=== PATIENT | female | born 1945 | race Caucasian/White ===

== ENCOUNTER 2018-10-15 10:55 | Outpatient (CLI) | payer MEDICARE, OTHER ==
[~2018-10-15 10:55] MED LIST: Iopamidol 370 76% 100 ML VIAL ONE
--- NOTE | 2018-10-15 12:32 | CT ---
CT CHEST WITH IV CONTRAST: Date: 10-15-18 Provided Clinical History: Supraclavicular swelling on the left for two years. FINDINGS: Correlation is made with chest CT dated 03-09-16. The heart, pericardium, and great vessels demonstrate an unremarkable CT appearance with the exceptio n of vascular calcification including coronary calcium. There is no evidence for thoracic lymph node enlargement. The lungs are free of suspicious opacity. The airway appears patent and of normal caliber. The visual ized portions of the upper abdomen demonstrate a partially visualized exophytic focus of altered CT d ensity arising from the lateral margin of the left kidney which does not demonstrates Hounsfield unit s compatible with a simple cyst. This is incompletely visualized and incompletely characterized on th e basis of the study. The supraclavicular soft tissues demonstrate an unremarkable CT appearance. There is no CT evidence f or mass in the region of patient concern as marked on the skin surface by the technologist. The osseous structures demonstrate no concerning osteoblastic or osteolytic lesions. IMPRESSION: 1. No CT correlate for the reported supraclavicular palpable abnormality. 2. Incompletely characterized exophytic mass arising from the left kidney. Correlation with renal ult rasound is recommended. 3. Vascular calcification including coronary calcium. POS: [facility]
== END 2018-10-15 10:56 | disposition home or self-care (01) ==
LOC: BICCT 10:55
PROVIDERS: ATTEND Surgery
DX: R22.1 Localized swelling, mass and lump, neck (principal); I70.90 Unspecified atherosclerosis; I25.10 Atherosclerotic heart disease of native coronary artery without angina pectoris; N28.89 Other specified disorders of kidney and ureter
CPT/HCPCS: 71260; 82565; Q9967

== ENCOUNTER 2018-11-21 13:03 | Outpatient (CLI) | payer MEDICARE, OTHER ==
--- NOTE | 2018-11-21 14:52 | CT ---
FCT abdomen with and without contrast CT pelvis with and without contrast: (CT urogram) 11/21/2018 HISTORY: 73-year-old female N 28.9 renal lesion N 28.1 renal cyst N 39.0 recurrent UTI R 10.9 left-sided abdominal pain COMPARISON: 08/25/2015 FINDINGS: Again noted are the numerous small parenchymal low densities throughout the left renal upper, mid, an d lower poles. Most are less than 1 cm in size. Almost all of them are too small to definitively sunitha acterize, but are statistically most likely represent numerous small cysts. The largest is a 1.5 x 1. 5 x 1.5 cm exophytic small mass protruding laterally from the left renal midpole with densities of 41 Hounsfield units on the precontrast scan, 49 Hounsfield units on the nephrographic phase scan, and 4 8 Hounsfield units on the excretory phase scan. This is consistent with a hemorrhagic renal cyst, and has grown in size since 2014. In the contralateral right kidney, there are also numerous tiny focal hypodense lesions, smaller than 1 cm in size, and too small to characterize. There are also probably cysts. No calculus in the kidneys, ureters, or bladder. Multiple diverticula in the sigmoid colon. A few scattered tiny hypodensities in the liver, also too small to characterize, probably tiny cysts. C holecystectomy clips in gallbladder fossa. No hydronephrosis. Pancreas, adrenals, and spleen, are nor mal. No abdominal aortic aneurysm. No ascites or pneumoperitoneum. No small bowel dilation. Urinary b ladder is nearly empty and therefore difficult to evaluate. IMPRESSION: 1) 1.5 cm hemorrhagic cyst in the left renal midpole parenchyma. 2) numerous tiny focal hypodensities throughout the bilateral renal parenchyma, left greater than rig ht. They are too small to characterize, but at least the vast majority of them are cysts. 3) no urolithiasis or obstructive uropathy.
[2018-11-21] MEDS ORDERED: ISOVUE-370 76%-LOCM 1 ML ONE (15:28)
== END 2018-11-21 13:04 | disposition home or self-care (01) ==
LOC: BICCT 13:03
PROVIDERS: ATTEND Urology
DX: N28.1 Cyst of kidney, acquired (principal); N28.9 Disorder of kidney and ureter, unspecified; N39.0 Urinary tract infection, site not specified
CPT/HCPCS: 74178; Q9966

== ENCOUNTER 2020-12-21 05:07 | Inpatient (IN) | payer MEDICARE, OTHER ==
[2020-12-21] MEDS ORDERED: Fentanyl 100 MCG/2 ML VIAL ONE ×4 (05:27→16:45)
[2020-12-21 05:36] LABS: #Eosinphils 0.4 thou/uL (0.0-0.7); #Lymphocytes 2.3 thou/uL (1.20-3.40); #Monocytes 0.7 thou/uL (0.11-0.59); #Neutrophils 3.8 thou/uL (1.40-6.50); %Basophils 0.6 % (0.0-1.0); %Eosinophils 5.2 % (0.0-10.0); %Monocytes 10.1 % (0.0-10.0); %Neutrophils 52.1 % (42.0-75.0); Hemoglobin 12.2 g/dL (12.0-16.0); Mean Corpuscular HGB CONC 31.2 g/dL (32.0-36.0); Mean Corpuscular Hemoglobin 29.5 pg (27.0-31.0); Mean Corpuscular Volume 94.6 fL (78.0-98.0); Mean Platelet Volume 9.4 fL (7.4-10.4); Platelet Count 196 thou/uL (130-400); RBC Distribution Width 11.8 % (11.5-14.5); Red Blood Cell (RBC) Count 4.15 mill/uL (4.20-5.40); White Blood Cell (WBC) Count 7.3 thou/uL (4.8-10.8)
[2020-12-21 05:58] LABS: ALT (SGPT) 14 U/L (8-55); AST (SGOT) 19 U/L (5-34); Albumin 3.7 g/dL (3.4-4.8); Alkaline Phosphatase 57 U/L (40-110); Anion Gap 11 mmol/L (10-20); BUN (Urea Nitrogen) 27 mg/dL (9.8-20.1); Bilirubin, Total 0.3 mg/dL (0.2-1.2); Calc. Creatinine Clearance 0 mL/min (70-130); Calcium 9.9 mg/dL (7.8-10.44); Carbon Dioxide 27 mmol/L (23-31); Chloride 106 mmol/L (98-107); Globulin 2.7 g/dL (2.4-3.5); Glucose 133 mg/dL (83-110); Potassium 3.8 mmol/L (3.5-5.1); Protein, Total 6.4 g/dL (5.8-8.1); Sodium 140 mmol/L (136-145)
[2020-12-21 06:07] LABS: INR-International Normal Ratio 0.9; PTT 26.3 sec (22.9-36.1); Prothrombin Time 12.7 sec (12.0-14.7)
[2020-12-21] MEDS ORDERED: Ondansetron PF 4 MG/2 ML Vial IVP PRN (06:45)
[2020-12-21] MEDS ORDERED: Dextrose 50% Abboject 50 ML SYRINGE SLOW IVP PRN (06:45)
[2020-12-21] MEDS ORDERED: Insulin Regular 300 UNITS/3 ML VIAL SC PRN ×2 (06:45)
[2020-12-21] MEDS ORDERED: Dextrose 5% in Water 1,000 ML IV PRN (06:45)
[2020-12-21] MEDS ORDERED: CEFAZOLIN 2 GM in Premix Bag 1 BAG IVPB SCH (07:30)
[2020-12-21] MEDS ORDERED: traMADol HCl 50 MG TAB ONE (07:41)
[2020-12-21] MEDS: traMADol HCl 50 MG TAB PO PRN (07:43)
[2020-12-21] MEDS ORDERED: Fentanyl 100 MCG/2 ML VIAL SLOW IVP PRN (08:15)
[2020-12-21] MEDS ORDERED: Famotidine/PF 20 mg/2ml Vial ONE ×2 (08:22→14:43)
[2020-12-21] MEDS ORDERED: Metoprolol Tartrate 50 MG TAB ONE (08:22)
[2020-12-21] MEDS ORDERED: Furosemide 40 MG TAB ONE (08:22)
[2020-12-21] MEDS ORDERED: Acetaminophen 325 MG TAB ONE ×2 (08:22→08:36)
[2020-12-21] MEDS: Acetaminophen 325 MG TAB PO SCH ×3 (08:27→19:48)
[2020-12-21] MEDS: Metoprolol Tartrate 100 MG TAB PO SCH (08:29)
[2020-12-21] MEDS: Famotidine/PF 20 mg/2ml Vial SLOW IVP SCH ×2 (08:30→19:49)
[2020-12-21] MEDS: Furosemide 20 MG TAB PO SCH (08:31)
[2020-12-21 10:25] LABS: SARS-CoV-2 PCR by NAA Not Detected (NotDetected)
[2020-12-21] MEDS: Rosuvastatin 20 MG TAB PO SCH (11:00)
[2020-12-21] MEDS ORDERED: Rocuronium Bromide 10 MG/ML (10ML VIAL) ONE (15:10)
[2020-12-21] MEDS ORDERED: Dexamethasone 20 MG/5 ML VIAL ONE (15:10)
[2020-12-21] MEDS ORDERED: Lidocaine 1% PF 5 ML VIAL ONE (15:10)
[2020-12-21] MEDS ORDERED: Glycopyrrolate 0.2 MG/ML 5 ML SYRINGE ONE (15:10)
[2020-12-21] MEDS ORDERED: Ondansetron PF 4 MG/2 ML Vial ONE (15:10)
[2020-12-21] MEDS ORDERED: PROPOFOL 200 MG/20 ML VIAL ONE (15:10)
[2020-12-21] MEDS ORDERED: Ondansetron HCl/PF 4 MG/2 ML Vial IVP PRN (16:33)
[2020-12-21] MEDS ORDERED: Promethazine HCl 25 MG/ML VIAL SLOW IVP PRN (16:33)
[2020-12-21] MEDS ORDERED: Promethazine HCl 25 MG/ML VIAL IM PRN (16:33)
[2020-12-21] MEDS: traMADol HCl 50 MG TAB PO SCH (19:47)
[2020-12-21] MEDS: CEFAZOLIN 2 GM in Premix Bag 1 BAG IVPB SCH ×2 (19:48→23:29)
[2020-12-21] MEDS: Cyclobenzaprine 10 MG TAB PO PRN (20:14)
[2020-12-21] MEDS: Venlafaxine HCl XR 150 MG CAP PO SCH (20:15)
[2020-12-21 22:20] VITALS: BMI 39.1
[2020-12-22] MEDS: Levothyroxine Sodium 100 MCG TAB PO SCH (05:33)
[2020-12-22] MEDS: traMADol HCl 50 MG TAB PO SCH ×5 (05:33→17:54)
[2020-12-22] MEDS: Acetaminophen 325 MG TAB PO SCH ×4 (05:34→17:54)
[2020-12-22 06:24] LABS: #Lymphocytes 1.3 thou/uL (1.20-3.40); #Monocytes 0.9 thou/uL (0.11-0.59); #Neutrophils 8.8 thou/uL (1.40-6.50); %Basophils 0.1 % (0.0-1.0); %Eosinophils 0.1 % (0.0-10.0); %Lymphocytes 11.5 % (21.0-51.0); %Monocytes 7.8 % (0.0-10.0); %Neutrophils 80.5 % (42.0-75.0); Hemoglobin 11.4 g/dL (12.0-16.0); Mean Corpuscular HGB CONC 31.5 g/dL (32.0-36.0); Mean Corpuscular Hemoglobin 29.9 pg (27.0-31.0); Mean Corpuscular Volume 94.9 fL (78.0-98.0); Mean Platelet Volume 9.9 fL (7.4-10.4); Platelet Count 210 thou/uL (130-400); RBC Distribution Width 11.6 % (11.5-14.5); Red Blood Cell (RBC) Count 3.82 mill/uL (4.20-5.40); White Blood Cell (WBC) Count 10.9 thou/uL (4.8-10.8)
[2020-12-22 06:25] LABS: Phosphorus 3.1 mg/dL (2.3-4.7)
[2020-12-22 06:28] LABS: Anion Gap 13 mmol/L (10-20); BUN (Urea Nitrogen) 27 mg/dL (9.8-20.1); Calc. Creatinine Clearance 52 mL/min (70-130); Calcium 10.5 mg/dL (7.8-10.44); Carbon Dioxide 25 mmol/L (23-31); Chloride 103 mmol/L (98-107); Glucose 156 mg/dL (83-110); Magnesium 2.2 mg/dL (1.6-2.6); Potassium 4.2 mmol/L (3.5-5.1); Sodium 137 mmol/L (136-145)
[2020-12-22] MEDS ORDERED: Aspirin 81 mg Enteric Coated Tablet PO SCH (09:00)
[2020-12-22] MEDS: Amlodipine 5 MG TAB PO SCH (10:36)
[2020-12-22] MEDS: Metoprolol Tartrate 100 MG TAB PO SCH (10:37)
[2020-12-22] MEDS: Heparin 5,000 UNITS/ML VIAL SC SCH ×2 (10:42→20:02)
[2020-12-22] MEDS: Ezetimibe 10 MG TAB PO SCH (10:43)
[2020-12-22] MEDS: Rosuvastatin 20 MG TAB PO SCH (10:43)
[2020-12-22] MEDS: traMADol HCl 50 MG TAB PO PRN (10:44)
[2020-12-22] MEDS: Famotidine 20 MG TAB PO SCH ×2 (10:44→20:02)
[2020-12-22] MEDS: Furosemide 20 MG TAB PO SCH (11:01)
[2020-12-22] MEDS: Glimepiride 4 MG TAB PO SCH (17:54)
[2020-12-22] MEDS: Venlafaxine HCl XR 150 MG CAP PO SCH (20:02)
[2020-12-23] MEDS: Acetaminophen 325 MG TAB PO SCH ×4 (01:14→17:55)
[2020-12-23] MEDS: traMADol HCl 50 MG TAB PO SCH ×4 (01:14→17:56)
[2020-12-23] MEDS: traMADol HCl 50 MG TAB PO PRN (02:28)
[2020-12-23] MEDS: Cyclobenzaprine 10 MG TAB PO PRN (02:28)
[2020-12-23] MEDS: Levothyroxine Sodium 100 MCG TAB PO SCH (05:49)
[2020-12-23 05:51] LABS: #Basophils 0.1 thou/uL (0.0-0.2); #Eosinphils 0.2 thou/uL (0.0-0.7); #Lymphocytes 2.3 thou/uL (1.20-3.40); #Monocytes 1.2 thou/uL (0.11-0.59); #Neutrophils 9.2 thou/uL (1.40-6.50); %Basophils 0.7 % (0.0-1.0); %Eosinophils 1.3 % (0.0-10.0); %Lymphocytes 17.9 % (21.0-51.0); %Monocytes 9.4 % (0.0-10.0); %Neutrophils 70.7 % (42.0-75.0); Hemoglobin 10.6 g/dL (12.0-16.0); Mean Corpuscular HGB CONC 31.4 g/dL (32.0-36.0); Mean Corpuscular Hemoglobin 29.8 pg (27.0-31.0); Mean Platelet Volume 9.6 fL (7.4-10.4); Platelet Count 160 thou/uL (130-400); RBC Distribution Width 11.6 % (11.5-14.5); Red Blood Cell (RBC) Count 3.54 mill/uL (4.20-5.40)
[2020-12-23 06:16] LABS: Anion Gap 11 mmol/L (10-20); BUN (Urea Nitrogen) 41 mg/dL (9.8-20.1); Calc. Creatinine Clearance 46 mL/min (70-130); Calcium 10.5 mg/dL (7.8-10.44); Carbon Dioxide 27 mmol/L (23-31); Chloride 103 mmol/L (98-107); Glucose 81 mg/dL (83-110); Magnesium 2.3 mg/dL (1.6-2.6); Phosphorus 3.3 mg/dL (2.3-4.7); Potassium 4.1 mmol/L (3.5-5.1); Sodium 137 mmol/L (136-145)
[2020-12-23] MEDS: Rosuvastatin 20 MG TAB PO SCH (09:20)
[2020-12-23] MEDS: Famotidine 20 MG TAB PO SCH (09:20)
[2020-12-23] MEDS: Ezetimibe 10 MG TAB PO SCH (09:20)
[2020-12-23] MEDS: Metoprolol Tartrate 100 MG TAB PO SCH (09:21)
[2020-12-23] MEDS: Glimepiride 4 MG TAB PO SCH ×2 (09:21→18:19)
[2020-12-23] MEDS: Amlodipine 5 MG TAB PO SCH (09:21)
[2020-12-23] MEDS: Heparin 5,000 UNITS/ML VIAL SC SCH (09:22)
[2020-12-23] MEDS: Furosemide 20 MG TAB PO SCH (09:22)
[2020-12-23 15:32] VITALS: BP 110/74; TEMP 98.1
== END 2020-12-23 18:05 | DRG 482 ==
LOC: ERS 05:07 → ERHOLD 06:25 → SURG A 19:11
PROVIDERS: ADMIT Surgery; ATTEND Surgery
PROC: 0QS706Z Reposition Left Upper Femur with Intramedullary Internal Fixation Device, Open Approach (ICD-10-PCS; principal; 2020-12-21)
DX: S72.142A Displaced intertrochanteric fracture of left femur, initial encounter for closed fracture (principal); Z20.822 Contact with and (suspected) exposure to COVID-19; Z23 Encounter for immunization; I25.10 Atherosclerotic heart disease of native coronary artery without angina pectoris; E78.5 Hyperlipidemia, unspecified; E03.9 Hypothyroidism, unspecified; N18.30 Chronic kidney disease, stage 3 unspecified; I12.9 Hypertensive chronic kidney disease with stage 1 through stage 4 chronic kidney disease, or unspecified chronic kidney disease; E11.22 Type 2 diabetes mellitus with diabetic chronic kidney disease; W18.39XA Other fall on same level, initial encounter; Y92.002 Bathroom of unspecified non-institutional (private) residence as the place of occurrence of the external cause; I25.2 Old myocardial infarction; Z90.49 Acquired absence of other specified parts of digestive tract; Z90.710 Acquired absence of both cervix and uterus; Z90.89 Acquired absence of other organs; Z79.899 Other long term (current) drug therapy; Z79.890 Hormone replacement therapy; Z79.84 Long term (current) use of oral hypoglycemic drugs; Z88.8 Allergy status to other drugs, medicaments and biological substances
CPT/HCPCS: 36415; 36416; 51702; 71045; 72170; 76000; 80048; 80053; 83735; 84100; 84484; 85025; 85610; 85730; 87635; 90471; 90732; 93005; 96374; C1713; G0009; G0390; J0690; J1100; J1644; J2405; J2704; J3010; S0028; U0003; U0005

== ENCOUNTER 2021-11-29 12:46 | Outpatient (CLI) | payer MEDICARE, OTHER | END 2021-11-29 12:47 | disposition home or self-care (01) | LOC: BICMAMMO 12:46 | PROVIDERS: ATTEND Internal Medicine | DX: Z12.31 Encounter for screening mammogram for malignant neoplasm of breast (principal); Z13.820 Encounter for screening for osteoporosis; M85.89 Other specified disorders of bone density and structure, multiple sites; Z91.89 Other specified personal risk factors, not elsewhere classified; Z78.0 Asymptomatic menopausal state | CPT/HCPCS: 77063; 77067; 77080 ==

== ENCOUNTER 2022-04-27 12:19 | Outpatient (CLI) | payer MEDICARE, OTHER | END 2022-04-27 12:20 | disposition home or self-care (01) | LOC: BICULT 12:19 | PROVIDERS: ATTEND Internal Medicine | DX: N18.4 Chronic kidney disease, stage 4 (severe) (principal); N28.1 Cyst of kidney, acquired | CPT/HCPCS: 76770 ==

== ENCOUNTER 2024-02-22 15:39 | Inpatient (IN) | payer MEDICARE, OTHER ==
[2024-02-22] MEDS ORDERED: Ondansetron PF 4 MG/2 ML Vial ONE (16:16)
[2024-02-22 16:42] LABS: #Basophils 0.03 10x3/uL (0.0-0.2); %Basophils 0.2 % (0.0-1.0); %Eosinophils 0.6 % (0.0-10.0); %Lymphocytes 4.9 % (21.0-51.0); %Monocytes 1.5 % (0.0-10.0); %Neutrophils 92.5 % (42.0-75.0); Hematocrit 42.3 % (36.0-47.0); Hemoglobin 13.8 g/dL (12.0-16.0); Mean Corpuscular HGB CONC 32.6 g/dL (32.0-36.0); Mean Corpuscular Hemoglobin 29.7 pg (27.0-31.0); Mean Platelet Volume 11.5 fL (7.4-10.4); Platelet Count 250 10x3/uL (130-400); RBC Distribution Width 12.8 % (11.5-14.5); Red Blood Cell (RBC) Count 4.65 mill/uL (4.20-5.40)
[2024-02-22 16:54] LABS: ALT (SGPT) 21 U/L (8-55); AST (SGOT) 35 U/L (5-34); Albumin 3.5 g/dL (3.4-4.8); Alkaline Phosphatase 71 U/L (40-110); Anion Gap 16 mmol/L (10-20); BUN (Urea Nitrogen) 19 mg/dL (9.8-20.1); Bilirubin, Total 0.7 mg/dL (0.2-1.2); Calc. Creatinine Clearance 0 mL/min (70-130); Calcium 8.8 mg/dL (7.8-10.44); Carbon Dioxide 18 mmol/L (23-31); Chloride 106 mmol/L (98-107); Estimated GFR 33; Globulin 3.6 g/dL (2.4-3.5); Glucose 176 mg/dL (83-110); Potassium 3.6 mmol/L (3.5-5.1); Protein, Total 7.1 g/dL (5.8-8.1); Sodium 136 mmol/L (136-145)
[2024-02-22] MEDS ORDERED: Piperacillin/Tazobactam 3.375 GM VIAL ONE (19:27)
[2024-02-22] MEDS ORDERED: Sodium Chloride 0.9% 100 ML ONE (19:27)
[2024-02-22 19:55] LABS: Magnesium 1.5 mg/dL (1.6-2.6)
[2024-02-22] MEDS ORDERED: Sodium Chloride 0.9% 1,000 ML IV SCH (20:00)
[2024-02-22] MEDS ORDERED: Ondansetron ODT 4 MG TAB SL PRN (20:00)
[2024-02-22] MEDS ORDERED: Ondansetron PF 4 MG/2 ML Vial IVP PRN (20:00)
[2024-02-22] MEDS ORDERED: Dextrose 50% Abboject 50 ML SYRINGE SLOW IVP PRN (21:11)
[2024-02-22] MEDS ORDERED: Dextrose 5% in Water 1,000 ML IV PRN (21:11)
[2024-02-22] MEDS ORDERED: Glucagon 1 MG/ML KIT IM PRN (21:11)
[2024-02-22 21:20] LABS: Influenza A by NAA Not Detected (NotDetected); Influenza B by NAA Not Detected (NotDetected); SARS-CoV-2 NAA Rapid Test Not Detected (NotDetected)
[2024-02-22 21:26] LABS: Hemoglobin A1c 6.1 % (4.0-6.0)
[2024-02-22 22:58] LABS: Lactic Acid 1.3 mmol/L (0.5-2.2)
[2024-02-22] MEDS: Magnesium 2 GM/50 ML(in water) 2 GM in Premix 1 BAG IVPB SCH (23:39)
[2024-02-22] MEDS: Lactated Ringer's 1,000 ML IV SCH (23:39)
[2024-02-22 23:41] VITALS: BMI 32.5
[2024-02-23 00:47] LABS: Lactic Acid 3.2 mmol/L (0.5-2.2)
[2024-02-23] MEDS: Levothyroxine Sodium 100 MCG TAB PO SCH (05:26)
[2024-02-23] MEDS: Ciprofloxacin 500 MG TAB PO SCH (05:26)
[2024-02-23] MEDS: Acetaminophen 325 MG TAB PO PRN ×2 (05:27→22:39)
[2024-02-23] MEDS: Amlodipine 5 MG TAB PO SCH (08:58)
[2024-02-23] MEDS: Glimepiride 4 MG TAB PO SCH (08:58)
[2024-02-23] MEDS: Ezetimibe 10 MG TAB PO SCH (08:58)
[2024-02-23] MEDS: Metoprolol Tartrate 100 MG TAB PO SCH (08:58)
[2024-02-23 10:38] LABS: #Basophils 0.05 10x3/uL (0.0-0.2); %Basophils 0.4 % (0.0-1.0); %Lymphocytes 10.3 % (21.0-51.0); %Monocytes 4.6 % (0.0-10.0); %Neutrophils 83.3 % (42.0-75.0); Hematocrit 34.7 % (36.0-47.0); Hemoglobin 10.8 g/dL (12.0-16.0); Mean Corpuscular HGB CONC 31.1 g/dL (32.0-36.0); Mean Corpuscular Hemoglobin 29.5 pg (27.0-31.0); Mean Corpuscular Volume 94.8 fL (78.0-98.0); Mean Platelet Volume 11.4 fL (7.4-10.4); Platelet Count 194 10x3/uL (130-400); Red Blood Cell (RBC) Count 3.66 mill/uL (4.20-5.40)
[2024-02-23 10:45] LABS: Anion Gap 14 mmol/L (10-20); BUN (Urea Nitrogen) 22 mg/dL (9.8-20.1); Calc. Creatinine Clearance 39 mL/min (70-130); Calcium 8.2 mg/dL (7.8-10.44); Carbon Dioxide 21 mmol/L (23-31); Chloride 109 mmol/L (98-107); Estimated GFR 29; Glucose 170 mg/dL (83-110); Potassium 3.5 mmol/L (3.5-5.1); Sodium 140 mmol/L (136-145)
[2024-02-23] MEDS: traMADol HCl 50 MG TAB PO PRN (20:18)
[2024-02-23] MEDS: Venlafaxine HCl XR 150 MG CAP PO SCH (20:20)
[2024-02-24 05:13] LABS: #Basophils 0.05 10x3/uL (0.0-0.2); %Basophils 0.5 % (0.0-1.0); %Eosinophils 1.4 % (0.0-10.0); %Lymphocytes 20.6 % (21.0-51.0); %Neutrophils 66.2 % (42.0-75.0); Hematocrit 36.8 % (36.0-47.0); Hemoglobin 11.4 g/dL (12.0-16.0); Mean Corpuscular Hemoglobin 28.9 pg (27.0-31.0); Mean Corpuscular Volume 93.2 fL (78.0-98.0); Mean Platelet Volume 11.3 fL (7.4-10.4); Platelet Count 192 10x3/uL (130-400); RBC Distribution Width 12.8 % (11.5-14.5); Red Blood Cell (RBC) Count 3.95 mill/uL (4.20-5.40)
[2024-02-24 05:48] LABS: Anion Gap 10 mmol/L (10-20); BUN (Urea Nitrogen) 19 mg/dL (9.8-20.1); Calc. Creatinine Clearance 43 mL/min (70-130); Calcium 8.5 mg/dL (7.8-10.44); Carbon Dioxide 24 mmol/L (23-31); Chloride 109 mmol/L (98-107); Estimated GFR 32; Glucose 52 mg/dL (83-110); Potassium 3.5 mmol/L (3.5-5.1); Sodium 139 mmol/L (136-145)
[2024-02-24] MEDS: Amlodipine 5 MG TAB PO SCH (10:38)
[2024-02-24] MEDS: Cinacalcet HCl 30 MG TAB PO SCH (10:39)
[2024-02-24] MEDS: Sodium Chloride 0.9% 1,000 ML IV SCH (13:55)
[2024-02-24 15:44] LABS: Campy jejuni + coli by PCR Negative (Negative); STEC Shiga Toxin 1+2 Negative (Negative); Salmonella spp. by PCR Negative (Negative); Shigella spp + EIEC by PCR Negative (Negative)
[2024-02-25 05:36] LABS: #Basophils 0.04 10x3/uL (0.0-0.2); %Basophils 0.5 % (0.0-1.0); %Eosinophils 3.6 % (0.0-10.0); %Monocytes 9.1 % (0.0-10.0); %Neutrophils 63.5 % (42.0-75.0); Hematocrit 38.8 % (36.0-47.0); Mean Corpuscular HGB CONC 30.9 g/dL (32.0-36.0); Mean Corpuscular Hemoglobin 28.5 pg (27.0-31.0); Mean Corpuscular Volume 92.2 fL (78.0-98.0); Mean Platelet Volume 11.2 fL (7.4-10.4); Platelet Count 189 10x3/uL (130-400); RBC Distribution Width 12.8 % (11.5-14.5); Red Blood Cell (RBC) Count 4.21 mill/uL (4.20-5.40)
[2024-02-25 05:55] LABS: Anion Gap 13 mmol/L (10-20); BUN (Urea Nitrogen) 15 mg/dL (9.8-20.1); Calc. Creatinine Clearance 47 mL/min (70-130); Calcium 8.5 mg/dL (7.8-10.44); Carbon Dioxide 22 mmol/L (23-31); Chloride 107 mmol/L (98-107); Estimated GFR 36; Glucose 147 mg/dL (83-110); Potassium 3.5 mmol/L (3.5-5.1); Sodium 138 mmol/L (136-145)
[2024-02-25] MEDS: Amlodipine 10 MG TAB PO SCH (07:58)
[2024-02-25 12:47] VITALS: BP 141/92; TEMP 98
== END 2024-02-25 13:01 | disposition home or self-care (01) | DRG 872 ==
LOC: ERS 15:39 → T4-B 19:47 → OBSVTOIN 02-24 08:57
PROVIDERS: ADMIT Student in an Organized Health Care Education/Training Program; ATTEND Internal Medicine
DX: A41.9 Sepsis, unspecified organism (principal); E87.20 Acidosis, unspecified; N17.9 Acute kidney failure, unspecified; K52.9 Noninfective gastroenteritis and colitis, unspecified; E11.649 Type 2 diabetes mellitus with hypoglycemia without coma; E78.5 Hyperlipidemia, unspecified; E11.22 Type 2 diabetes mellitus with diabetic chronic kidney disease; I12.9 Hypertensive chronic kidney disease with stage 1 through stage 4 chronic kidney disease, or unspecified chronic kidney disease; Z79.899 Other long term (current) drug therapy; N18.30 Chronic kidney disease, stage 3 unspecified; Z88.8 Allergy status to other drugs, medicaments and biological substances; I25.2 Old myocardial infarction; Z90.89 Acquired absence of other organs; F32.A Depression, unspecified; Z90.710 Acquired absence of both cervix and uterus; Z90.49 Acquired absence of other specified parts of digestive tract
CPT/HCPCS: 36415; 36416; 71045; 80048; 80053; 83036; 83605; 83735; 84145; 85025; 87040; 87077; 87149; 87186; 87324; 87449; 87505; 93005; G0378; J2405; J2543; J3490; J7050; J7120

== ENCOUNTER 2024-10-22 15:33 | Outpatient (CLI) | payer MEDICARE, OTHER | END 2024-10-22 15:34 | disposition home or self-care (01) | LOC: BICRAD 15:33 | PROVIDERS: ATTEND Internal Medicine | DX: R06.00 Dyspnea, unspecified (principal) | CPT/HCPCS: 71046 ==

== ENCOUNTER 2025-04-30 20:45 | Inpatient (IN) | payer MEDICARE, OTHER ==
[2025-04-30 22:26] LABS: #Basophils 0.06 10x3/uL (0.0-0.2); #Eosinophils Less than 0.03 10x3/uL (0.0-0.7); #Monocytes 1.35 10x3/uL (0.11-0.59); #Neutrophils 10.30 10x3/uL (1.40-6.50); %Basophils 0.4 % (0.0-1.0); %Eosinophils 0.1 % (0.0-10.0); %Lymphocytes 18.2 % (21.0-51.0); %Monocytes 9.3 % (0.0-10.0); %Neutrophils 71.3 % (42.0-75.0); Hematocrit 37.6 % (36.0-47.0); Hemoglobin 11.7 g/dL (12.0-16.0); Mean Corpuscular Hemoglobin 28.2 pg (27.0-31.0); Mean Corpuscular Volume 90.6 fL (78.0-98.0); Platelet Count 285 10x3/uL (130-400); Red Blood Cell (RBC) Count 4.15 mill/uL (4.20-5.40); White Blood Cell (WBC) Count 14.47 10x3/uL (4.8-10.8)
[2025-04-30 22:51] LABS: ALT (SGPT) 14 U/L (Less than 34); AST (SGOT) 19 U/L (11-34); Albumin 2.9 g/dL (3.1-4.5); Alkaline Phosphatase 68 U/L (40-110); Anion Gap 14 mmol/L (10-20); BUN (Urea Nitrogen) 25 mg/dL (9.8-20.1); Bilirubin, Total 0.6 mg/dL (0.3-1.2); Calc. Creatinine Clearance 0 mL/min (70-130); Calcium 8.4 mg/dL (7.8-10.44); Carbon Dioxide 18 mmol/L (23-31); Chloride 105 mmol/L (98-107); Globulin 3.4 g/dL (2.4-3.5); Glucose 172 mg/dL (83-110); Potassium 3.3 mmol/L (3.5-5.1); Sodium 134 mmol/L (136-145)
[2025-04-30] MEDS ORDERED: Ondansetron PF 4 MG/2 ML Vial IVP PRN (23:27)
[2025-04-30] MEDS ORDERED: Dextrose 50% Abboject 50 ML SYRINGE SLOW IVP PRN (23:36)
[2025-04-30] MEDS ORDERED: Glucagon 1 MG/ML KIT IM PRN (23:36)
[2025-04-30 23:52] LABS: Bacteria/HPF 4+ HPF (None Seen); CAUTI Indications for Culture Pelvic or flank pain; Glucose, Urine (Dipstick) >=1000 mg/dL (Negative); Leukocyte 500 Leu/uL (Negative); Protein, Urine (Dipstick) 50 mg/dL (Neg-Trace); Specific Gravity, Urine 1.009 (1.002-1.036); WBC/HPF Greater than 50 HPF (0-3)
[2025-04-30 23:54] LABS: Urine Culture Reflex Yes Yes
[2025-05-01 01:12] VITALS: BMI 34.6
[2025-05-01] MEDS: cefTRIAXone\\ROCEPHIN 1 GM in Sodium Chloride 0.9% 100 ML IVPB SCH (01:49)
[2025-05-01] MEDS: Azithromycin 500 MG in Sodium Chloride 0.9% 250 ML 250 ML IVPB SCH (01:50)
[2025-05-01 05:44] LABS: #Basophils 0.05 10x3/uL (0.0-0.2); #Eosinophils 0.05 10x3/uL (0.0-0.7); #Monocytes 1.32 10x3/uL (0.11-0.59); #Neutrophils 12.89 10x3/uL (1.40-6.50); %Basophils 0.3 % (0.0-1.0); %Eosinophils 0.3 % (0.0-10.0); %Lymphocytes 12.3 % (21.0-51.0); %Monocytes 8.0 % (0.0-10.0); %Neutrophils 78.6 % (42.0-75.0); Hematocrit 39.4 % (36.0-47.0); Hemoglobin 12.0 g/dL (12.0-16.0); Mean Corpuscular Hemoglobin 28.0 pg (27.0-31.0); Mean Corpuscular Volume 92.1 fL (78.0-98.0); Platelet Count 280 10x3/uL (130-400); Red Blood Cell (RBC) Count 4.28 mill/uL (4.20-5.40); White Blood Cell (WBC) Count 16.41 10x3/uL (4.8-10.8)
[2025-05-01 06:21] LABS: ALT (SGPT) 14 U/L (Less than 34); AST (SGOT) 17 U/L (11-34); Albumin 2.9 g/dL (3.1-4.5); Alkaline Phosphatase 70 U/L (40-110); Anion Gap 17 mmol/L (10-20); BUN (Urea Nitrogen) 25 mg/dL (9.8-20.1); Bilirubin, Total 0.7 mg/dL (0.3-1.2); Calc. Creatinine Clearance 25 mL/min (70-130); Calcium 8.3 mg/dL (7.8-10.44); Carbon Dioxide 21 mmol/L (23-31); Chloride 104 mmol/L (98-107); Globulin 3.7 g/dL (2.4-3.5); Glucose 123 mg/dL (83-110); Potassium 3.7 mmol/L (3.5-5.1); Sodium 138 mmol/L (136-145)
[2025-05-01] MEDS: Pantoprazole 40 MG DR.TAB PO SCH (08:41)
[2025-05-01] MEDS: Heparin 5,000 UNITS/ML VIAL SC SCH (08:42)
[2025-05-01] MEDS ORDERED: Pantoprazole 40 MG GRANULES PACKET PO SCH ×2 (09:00)
[2025-05-01] MEDS ORDERED: PROPOFOL 20 ML ONE (11:53)
[2025-05-01] MEDS ORDERED: Iopamidol 0 ML ONE (12:18)
[2025-05-01] MEDS ORDERED: SUCCINYLCHOLINE/SOD CL,ISO/PF 200 MG/10 ML SYRINGE FS ONE (13:06)
[2025-05-01] MEDS ORDERED: fentaNYL PF 100 MCG/2 ML SYRINGE ONE (13:17)
[2025-05-01] MEDS ORDERED: diphenhydrAMINE 50 MG/ML VIAL ONE (14:00)
[2025-05-01] MEDS ORDERED: Ondansetron PF 4 MG/2 ML Vial ONE (14:00)
[2025-05-01] MEDS ORDERED: PHENYLEPHRINE-NS 100 MCG/ML 10 ML SYRINGE ONE (14:00)
[2025-05-01] MEDS: Ezetimibe 10 MG TAB PO SCH (16:12)
[2025-05-01] MEDS ORDERED: Hyoscyamine SL 0.125 MG TAB SL PRN (19:02)
[2025-05-01] MEDS: Rosuvastatin 10 MG TAB PO SCH (22:35)
[2025-05-02 05:08] LABS: Hematocrit 32.7 % (36.0-47.0); Hemoglobin 9.8 g/dL (12.0-16.0); Mean Corpuscular Hemoglobin 27.9 pg (27.0-31.0); Mean Corpuscular Volume 93.2 fL (78.0-98.0); Platelet Count 252 10x3/uL (130-400); Red Blood Cell (RBC) Count 3.51 mill/uL (4.20-5.40); White Blood Cell (WBC) Count 13.66 10x3/uL (4.8-10.8)
[2025-05-02 05:21] LABS: Anion Gap 12 mmol/L (10-20); BUN (Urea Nitrogen) 22 mg/dL (9.8-20.1); Calc. Creatinine Clearance 31 mL/min (70-130); Calcium 7.6 mg/dL (7.8-10.44); Carbon Dioxide 20 mmol/L (23-31); Chloride 109 mmol/L (98-107); Glucose 126 mg/dL (83-110); Potassium 4.1 mmol/L (3.5-5.1); Sodium 137 mmol/L (136-145)
[2025-05-02] MEDS: Metoprolol Succinate XL 100 MG ER.TAB PO SCH (09:15)
[2025-05-02] MEDS: Fluconazole 100 MG TAB PO SCH (18:34)
[2025-05-03 06:23] LABS: Hematocrit 32.8 % (36.0-47.0); Hemoglobin 10.2 g/dL (12.0-16.0); Mean Corpuscular Hemoglobin 28.4 pg (27.0-31.0); Mean Corpuscular Volume 91.4 fL (78.0-98.0); Platelet Count 280 10x3/uL (130-400); Red Blood Cell (RBC) Count 3.59 mill/uL (4.20-5.40); White Blood Cell (WBC) Count 9.61 10x3/uL (4.8-10.8)
[2025-05-03 06:52] LABS: Anion Gap 10 mmol/L (10-20); BUN (Urea Nitrogen) 19 mg/dL (9.8-20.1); Calc. Creatinine Clearance 36 mL/min (70-130); Calcium 7.4 mg/dL (7.8-10.44); Carbon Dioxide 22 mmol/L (23-31); Chloride 108 mmol/L (98-107); Glucose 108 mg/dL (83-110); Potassium 3.4 mmol/L (3.5-5.1); Sodium 137 mmol/L (136-145)
[2025-05-03] MEDS: Fluconazole 100 MG TAB PO SCH (09:27)
[2025-05-04] MEDS: Senokot S 8.6-50 MG TAB PO SCH (05:48)
[2025-05-04 06:11] LABS: Anion Gap 14 mmol/L (10-20); BUN (Urea Nitrogen) 16 mg/dL (9.8-20.1); Calc. Creatinine Clearance 37 mL/min (70-130); Calcium 7.7 mg/dL (7.8-10.44); Carbon Dioxide 23 mmol/L (23-31); Chloride 107 mmol/L (98-107); Glucose 109 mg/dL (83-110); Potassium 4.3 mmol/L (3.5-5.1); Sodium 140 mmol/L (136-145)
[2025-05-04] MEDS: NIFEdipine XL 30 MG ER.TAB PO SCH (09:31)
[2025-05-05] MEDS: Acetaminophen 325 MG TAB PO PRN (05:05)
[2025-05-05 07:44] VITALS: BP 120/73; TEMP 97.9
== END 2025-05-05 12:21 | DRG 853 ==
LOC: ERS 20:45 → SURG A 23:30 → OBSVTOIN 05-01 08:49
PROVIDERS: ADMIT Internal Medicine; ATTEND Internal Medicine
PROC: 3E03329 Introduction of Other Anti-infective into Peripheral Vein, Percutaneous Approach (ICD-10-PCS; 2025-04-30)
PROC: 0T768DZ Dilation of Right Ureter with Intraluminal Device, Via Natural or Artificial Opening Endoscopic (ICD-10-PCS; principal; 2025-05-01)
DX: A41.9 Sepsis, unspecified organism (principal); J96.01 Acute respiratory failure with hypoxia; N17.9 Acute kidney failure, unspecified; N13.6 Pyonephrosis; Z66 Do not resuscitate; N18.9 Chronic kidney disease, unspecified; F32.A Depression, unspecified; R53.81 Other malaise; Z88.8 Allergy status to other drugs, medicaments and biological substances; E11.9 Type 2 diabetes mellitus without complications; I25.2 Old myocardial infarction; I12.9 Hypertensive chronic kidney disease with stage 1 through stage 4 chronic kidney disease, or unspecified chronic kidney disease; I10 Essential (primary) hypertension; J44.9 Chronic obstructive pulmonary disease, unspecified; Z79.899 Other long term (current) drug therapy; Z79.890 Hormone replacement therapy
CPT/HCPCS: 36415; 36416; 71045; 71250; 74176; 80048; 80053; 81001; 83605; 83880; 84145; 84484; 85025; 85027; 87040; 87086; 87426; 87633; 93005; 96360; 96361; 96372; 96374; 96376; C2617; G0378; J0456; J0696; J1200; J1644; J2405; J2704; J3010; J7030; J7050; J7620; Q9967